=== PATIENT | male | born 1985 | race Caucasian/White ===

== ENCOUNTER 2017-04-04 12:03 | Emergency (ER) | payer OTHER ==
[2017-04-04 12:28] VITALS: TEMP 97.7; O2SAT 98
--- NOTE | 2017-04-04 13:49 | C.PDOC ---
History Of Present Illness 31 year old male, with PMHx of anxiety, presents to the ED for evaluation of increased anxiety. Patient states he has been under a lot of stress lately and this is causing an increase in his anxiety. Patient states he ran out of his anxiety medications and is scheduled for an appointment with is psychiatrist tomorrow. Patient denies suicidal/homicidal ideation at this time. Time Seen by Provider: 04/04/17 13:32 Chief Complaint (Nursing): Psychiatric Evaluation History Per: Patient History/Exam Limitations: no limitations Onset/Duration Of Symptoms: Days Current Symptoms Are (Timing): Still Present Suicide/Self Injury Attempted (Context): None Modifying Factor(s): None Associated Symptoms: Anxiety. denies: Suicidal Thoughts, Suicidal Plan Involuntary Hold By: None Recent travel outside of the [place]: No Additional History Per: Patient Past Medical History Reviewed: Historical Data, Nursing Documentation, Vital Signs Vital Signs: Last Vital Signs Temp 97.7 F 04/04/17 12:24 Pulse 72 04/04/17 14:04 Resp 18 04/04/17 14:04 BP 124/75 04/04/17 14:04 Pulse Ox 98 04/04/17 21:02 - Medical History PMH: Anxiety Surgical History: No Surg Hx - [facility] Procedures CLOS REDUCTION NASAL FX (10/22/00) INJECT/INFUSE NEC (05/11/13) Family History: States: Unknown Family Hx - Social History Hx Alcohol Use: No Hx Substance Use: No - Immunization History Hx Tetanus Toxoid Vaccination: Yes Hx Influenza Vaccination: No Hx Pneumococcal Vaccination: No Review Of Systems Except As Marked, All Systems Reviewed And Found Negative. Psych: Positive for: Anxiety. Negative for: Suicidal ideation Physical Exam - Physical Exam Appears: Non-toxic, No Acute Distress, Other (anxious ) Skin: Normal Color, Warm, Dry Head: Atraumatic, Normacephalic Eye(s): bilateral: Normal Inspection, PERRL, EOMI Oral Mucosa: Moist Neck: Normal ROM, Supple Chest: Symmetrical, No Deformity Cardiovascular: Rhythm Regular, No Friction Rub, No Murmur Respiratory: Normal Breath Sounds, No Rales, No Rhonchi, No Wheezing Back: Normal Inspection, No CVA Tenderness Extremity: Normal ROM, No Swelling Neurological/Psych: Oriented x3, Normal Speech (pressured), Normal Cognition, Normal Motor, Normal Sensation Gait: Steady ED Course And Treatment O2 Sat by Pulse Oximetry: 98 (on RA) Pulse Ox Interpretation: Normal Medical Decision Making Medical Decision Making: Progress: Patient received Xanax PO. On reassessment, patient is resting comfortably, showing no signs of distress and reports an improvement in his symptoms. Patient is stable for discharge and is advised to follow up with his psychiatrist in office tomorrow as scheduled. Disposition - Disposition Referrals: Sumanth Jones MD [Staff Provider] - Disposition: HOME/ ROUTINE Disposition Time: 13:48 Condition: FAIR Additional Instructions: SEE YOUR PSYCHIATRIST TOMORROW WITHOUT FAIL. Instructions: Anxiety (ED) Forms: [facility] (Ukrainian) - Clinical Impression Clinical Impression: Anxiety - PA / [employer] / Resident Statement MD/DO has reviewed & agrees with the documentation as recorded. - Scribe Statement The provider has reviewed the documentation as recorded by the Scribe (Tracey Burt) All medical record entries made by the Scribe were at my direction and personally dictated by me. I have reviewed the chart and agree that the record accurately reflects my personal performance of the history, physical exam, medical decision making, and the department course for this patient. I have also personally directed, reviewed, and agree with the discharge instructions and disposition.
[2017-04-04 14:05] VITALS: BP 124/75; PULSE 72; RESP 18
== END 2017-04-04 14:05 | disposition home or self-care (01) ==
LOC: C.ER 12:03
DX: F41.9 Anxiety disorder, unspecified (principal)